=== PATIENT | male | born 1985 | race Caucasian/White ===

== ENCOUNTER 2024-08-08 16:48 | Emergency (ER) | payer OTHER, SELFPAY ==
[2024-08-08 16:53] VITALS: BMI 19.5
[2024-08-08 17:00] VITALS: BP 132/80
[2024-08-08 17:23] LABS: % Basophils 0.4 % (0-2); % Eosinophils 0.1 % (0-6); % Immature Granulocytes 0.4 % (0-0.5); % Lymphocytes 9.1 % (20.5-51.1); % Monocytes 6.5 % (1.7-9.3); % Neutrophils 83.5 % (42.2-75.2); Absolute Basophils 0.1 10^3/uL (0-0.2); Absolute Immature Granulocytes 0.1 10^3/uL (0-0.05); Absolute Lymphocytes 1.2 10^3/uL (1.2-3.4); Absolute Monocytes 0.9 10^3/uL (0.1-0.6); Absolute Neutrophils 11.2 10^3/uL (1.4-6.5); Hematocrit 46.3 % (39.0-52.0); Hemoglobin 15.6 g/dL (13.0-18.0); Mean Corp Hgb Conc. 33.7 g/dL (33.0-37.0); Mean Corpuscular Hgb 31.5 pg (27.0-31.0); Mean Corpuscular Volume 93.5 fL (80.0-94.0); Mean Platelet Volume 10.3 fL (7.4-10.4); Nucleated Red Blood Cells % 0 % (-); Platelet Count 247 10^3/uL (130-400); Red Blood Cell Count 4.95 10^6/uL (4.70-6.10); Red Cell Dist. Width 12.2 % (11.5-14.5); White Blood Cell Count 13.4 10^3/uL (4.8-10.8)
[2024-08-08 17:49] LABS: Blood Urea Nitrogen 21 mg/dl (9-20); Calcium 9.2 mg/dl (8.4-10.2); Carbon Dioxide 24 mmol/L (22-30); Chloride 107 mmol/L (98-107); Estimated Creatinine Clearance 116 ml/min; Glucose 143 mg/dl (70-99); Sodium 142 mmol/L (135-145); eGFR > 60.00
[2024-08-08 18:00] VITALS: BP 124/67
[2024-08-08 19:04] VITALS: BP 134/78
[2024-08-08] MEDS: NSS 500 IV (19:21)
--- NOTE | 2024-08-08 19:57 | ED.GENMED ---
History of Present Illness
General
Chief Complaint: Dizziness
Source: patient
Exam Limitations: none
Time Seen by Provider: 08/08/24 17:12
Nursing documentation reviewed up to this point in time: agreed with
History of Present Illness
History of Present Illness:
Patient to ED with complaint of weakness, headache. He is currently in custody at [facility]. States he has had headaches on and off for the past week. Now feels generally weak. Reports nausea. Denies fever/chills. Brought to ED by [facility] staff.
Past History
Past History
ED Past Medical History: None
ED Past Surgical History: None
Social History
Tobacco: Non-smoker
Drug: Former user
Review of Systems
Review of Systems
Allergies reviewed?: Yes
All Other Systems: ROS reviewed and negative except as documented in HPI and ROS
Constitutional: Reports fatigue
EENT: Reports no symptoms
Respiratory: Reports no symptoms
Cardiac: Reports no symptoms
ABD/GI: Reports no symptoms
: Reports no symptoms
Musculoskeletal: Reports no symptoms
Skin: Reports no symptoms
Neurological: Reports weakness
Psychiatric: Reports no symptoms
Phy Exam
General Physical Exam
General Presentation: mild distress
General age: appears stated age
General Skin: warm and dry
General Habitus: normal
General Mental: alert
General Hydration: appears well hydrated
Cardiovascular Exam
Cardiovascular Exam: regular rate/rhythm and no edema
Pulmonary Exam
Pulmonary Exam: no respiratory distress and chest non tender
Neurological Exam
Neurological Exam: alert, oriented x3 and no motor deficits
Musculoskeletal Exam
Musculoskeletal Exam: full ROM and no edema
Skin Exam
Skin Exam: normal color, warm/dry and no rash
Psychiatric Exam
Psychiatric Exam: normal mood/affect
Course
Orders/Labs/Results
Orders:
Orders
08/08/24 16:51
EKG [Electrocardiogram (*1)] Urgent
Reason for Study: Other
Other Reason for Exam: diaphoretic, possible withdraw
08/08/24 16:52
EKG- Treatment ONCE
08/08/24 17:14
Basic Metabolic Panel Urgent
Complete Blood Count/With Diff Urgent
08/08/24 18:05
CT Head W/o Iv Contrast Urgent
Comment:
Reason For Exam: change in mental status
08/08/24 18:59
0.9% Sodium Chloride 500 ml [Nss] 500 ml IV BOLUS
08/08/24 19:57
Ketorolac [Toradol] 30 mg IV NOW STA
08/08/24 20:05
Ondansetron Injectable [Zofran] 4 mg IV NOW STA
08/08/24 20:22
Comprehensive Metabolic Panel Urgent
Fentanyl, Urine Urgent
Urinalysis Reflex To Culture Urgent
Date Specimen was Collected: 08/08/24
Time Specimen was Collected: 20:20
Urine Drug Abuse Screen Urgent
Date Specimen was Collected: 08/08/24
Time Specimen was Collected: 20:20
Abnormal Lab Results
08/08/24 08/08/24
17:14 20:22
WBC 13.4 H 10^3/uL
(4.8-10.8)
MCH 31.5 H pg
(27.0-31.0)
Abs Immat Gran (auto) 0.1 H 10^3/uL
(0-0.05)
Absolute Neuts (auto) 11.2 H 10^3/uL
(1.4-6.5)
Absolute Monos (auto) 0.9 H 10^3/uL
(0.1-0.6)
Neutrophils % 83.5 H %
(42.2-75.2)
Lymphocytes % 9.1 L %
(20.5-51.1)
Chloride 109 H mmol/L
(98-107)
BUN 21 H mg/dl
(9-20)
Glucose 143 H mg/dl 124 H mg/dl
(70-99) (70-99)
Ur Buprenorphine Positive H
(Negative)
08/08/24 17:14
08/08/24 20:22
Vital Signs
Initial and Last Documented VS:
Initial Vital Signs
Pulse Resp Pulse Ox
86 15 97
08/08/24 16:52 08/08/24 16:52 08/08/24 16:52
Last Documented Vital Signs
Temp Pulse Resp BP Pulse Ox
98.1 F 83 17 123/73 83
08/08/24 16:54 08/08/24 21:15 08/08/24 21:15 08/08/24 21:00 08/08/24 19:57
*Radiology
Radiology exam reviewed: radiology read reviewed
*Pulse Oximetry
SaO2: 83
Oxygen Mode of Delivery: Room air
Patient hypoxic: no
*Critical Care Note
Total Time (30-74mins, 75-104mins- exclusive of procedures): Not Applicable
Update Note
Update Note:
Patient to ED with complains of headache and weakness. No fever/chills. Reports nausea without vomiting or diarrhea. Eating and drinking normally. Neurologically intact. CT neg for acute findings. Labs reviewed with him. No concerning
findings, no findings to explain his symptoms. WIll discharge back to group home. Recommend increasing fluid intake, tylenol for his headaches and reassessment by medical in 2-3 days. He remains awake and alert, in no distress. VSS, he is afebrile.
ED Attending Note
-
Portions of this chart may have been created with voice recognition software.� Occasional wrong word or��sound alike� substitutions may have occurred due to the inherent limitations of voice recognition software.
Discharge Plan
Departure
Patient Disposition: Skilled Nursing
Date of Disposition: 08/08/24
Time of Disposition: 21:17
Patient with high blood pressure during this ER visit?: No
Condition: Good
Covid-19: Not Applicable
Discharge Problem:
Weakness, Headache
Instructions: Weakness, Headache in adults - ED discharge instructions
Referrals:
[facility] [Family Provider, General]
Activity Restrictions/Additional Instructions:
Increase your fluid intake. Follow up with your health center in the AM
Interventions
Interventions:
*General Assessment Last Done: 08/08/24 17:01
*Neglect/Abuse Screening Last Done: 08/08/24 17:02
*ED- Fall Risk Assessment Last Done: 08/08/24 17:00
*ED COVID-19 Vaccine History Last Done: 08/08/24 17:02
*Nursing Disposition Last Done: 08/08/24 21:41
ED- Neurological Assessment Last Done: 08/08/24 16:52
ED- Cardiac Assessment Last Done: 08/08/24 21:44
ED Swallowing Screen Last Done: 08/08/24 20:35
Discharge Date and Time
Discharge Date/Time: 08/08/24 21:58
Print Language: [id number]
[2024-08-08 20:00] VITALS: BP 133/79
[2024-08-08] MEDS: TORADOL 30 MG IV (20:01)
[2024-08-08] MEDS: ZOFRAN 4 MG IV (20:10)
[2024-08-08 20:39] LABS: Urine Albumin Negative (Neg - Trace); Urine Bilirubin Negative (Negative); Urine Character Clear (Clear); Urine Color Yellow; Urine Glucose Negative (Negative); Urine Ketone Negative (Negative); Urine Leukocyte Negative (Negative); Urine Nitrite Negative (Negative); Urine Occult Blood Negative (Negative); Urine Urobilinogen Negative (Neg - 1+)
[2024-08-08 20:55] LABS: Amphetamines Negative (Negative); Barbiturates Negative (Negative); Benzodiazepines Negative (Negative); Buprenorphine Positive (Negative); Cocaine Negative (Negative); Marijuana Negative (Negative); Methadone Negative (Negative); Methamphetamines Negative (Negative); Opiates Negative (Negative); Phencyclidine Negative (Negative); Tricyclic Antidepressants Negative (Negative)
[2024-08-08 20:57] LABS: ALT (SGPT) 22 U/L (0-50); AST (SGOT) 17 U/L (17-59); Albumin 4.3 g/dl (3.5-5.0); Alkaline Phosphatase 59 U/L (38-126); Blood Urea Nitrogen 19 mg/dl (9-20); Calcium 8.7 mg/dl (8.4-10.2); Carbon Dioxide 24 mmol/L (22-30); Chloride 109 mmol/L (98-107); Estimated Creatinine Clearance > 125 ml/min; Glucose 124 mg/dl (70-99); Potassium 4.2 mmol/L (3.5-5.1); Sodium 142 mmol/L (135-145); Total Bilirubin 0.4 mg/dl (0.2-1.3); Total Protein 7.3 g/dl (6.3-8.2); eGFR > 60.00
[2024-08-08 21:00] VITALS: BP 123/73
[2024-08-08 21:11] LABS: Fentanyl, Urine Negative (Negative)
== END 2024-08-08 21:58 ==
LOC: EMR 16:48
PROVIDERS: Nurse Practitioner; EMERGENCY PHYSICIAN Emergency Medicine
DX: R51.9 Headache, unspecified (principal); R53.1 Weakness; R11.0 Nausea; R42 Dizziness and giddiness; R53.83 Other fatigue; R61 Generalized hyperhidrosis; R41.82 Altered mental status, unspecified; F15.11 Other stimulant abuse, in remission; F11.11 Opioid abuse, in remission; Z91.010 Allergy to peanuts; Z91.013 Allergy to seafood
CPT/HCPCS: 99284; 96374; 96375; 96361; 70450; 80048; 80053; 80306; 80307; 81003; 85025; 93005